=== PATIENT | female | born 1985 | race American Indian/Alaskan Native ===

== ENCOUNTER 2017-08-07 14:33 | Emergency (ER) | payer MEDICAID ==
[2017-08-07] MEDS ORDERED: Lactated Ringer's 1,000 ML IV ONE (15:50)
[2017-08-07 16:54] LABS: RBC URINE < 1 /hpf (0-3); URINE BILIRUBIN NEGATIVE (NEGATIVE); URINE BLOOD NEGATIVE (NEGATIVE); URINE COLOR Straw (YELLOW); URINE GLUCOSE (UA) NORMAL (Normal); URINE KETONE NEGATIVE (NEGATIVE); URINE LEUKOCYTE ESTERASE NEG Leu/uL (Negative); URINE PROTEIN NEGATIVE (NEGATIVE); URINE UROBILINOGEN NORMAL mg/dL (0.2-1.0); WBC URINE < 1 /hpf (0-5)
--- NOTE | 2017-08-08 09:41 | OBHP ---
Datetime: 08/07/2017 15:51 IP Chief Complaint Other: vaginal pressure IP Admit Plan: Discharge home Admit Comment, IP Provider: 32 yo at 34 weeks 6 days with a LMP of 12/06/2016 and an MOREAN of 1 per ultrasound. Patient presents with compliant of intermittent contraction and lower abdom inal pain that started on friday evening. Patient reports that her contractions have not been contino us. Patient denies LOF, VB, urinary symptoms and endorses movement issues: Denies OB Hx: G1: Female, 6lbs, full-term, , 04/09/2002 G2: Elective at 22 weeks by D_C- 2009 G3: Elective at 8 weeks by D_C-2011 G4: Elective by D_C-2015 G5: Current S[employer] Hx: Menarche: 10 [place]: 12/regular/ 4 days Denies hx of STDs Denies hx of fibroids and ovarian cysts Denies hx of abnormal pap smear PMHx: Denies PSHx: D _ C x3 FHx: Mother and Father: HTN Medications: PNV Allergies: NKDA Social Hx: Lives with her boyfriend, works as a customer service. Admits to former tobacco use (1P ack in 2 days), admits to 2-3 drinks per week ( pre-), and denies illicit drug use Vital signs: BP: 122/65, HR: 99, Temp: 97.6 P.E: See above A/P: 32 yo at 34 weeks 6 days with complaints of contractions 1. Stable, Afebrirle 2. Continiue EFM and TOCO 3. Hydrate with LR bolus 4. F/u UA 5. If continous contraction, pre-term precautions will be taken 6. Plan d/w with attending Mal Galvez DO, PGY-1 OB attending Patient examined.Agree with resident exam, assessment and plan Chief complaint-vaginal pressure Ptaient with c/o vaginal pressure.was checked in clinic and cervix was closed Patient given iv fluids.cervix re-examined .cervix closed UA neg for nitrites and le Plan-patient discharged home pelvic rest follow up in clinic in [address] wong Pelvic Type - PN: Adequate Extremities - PN: Normal Abdomen - PN: Normal Back - PN: Normal Lungs - PN: Normal Heart - PN: Normal Neurologic - PN: Normal General - PN: Normal Contraction Comments Provider: occ Comments, ACOG Physical Exam: Gen: NAD, AAOX3 Cardio: RRR, Normal S1, S2 Pulm: CTA bilaterally Abdomen: Soft, Gravid Ext: No edema, cyanosis and clubbing EFM: - FHR: 150 -[place]: irregular Gestation - Est Wks by US: 34 weeks and 6 days EGA AdmitDate IP: 34.6 Vital Signs Provider: Reviewed; Within Normal Limits IP Chief Complaint: Other FHR Category Provider Fetus A: Category I Dilatation, Provider: 0 Effacement, Provider: thick Station, Provider: high Genitourinary Exam: Normal DTRs - PN: Normal
[2017-08-08 13:39] VITALS: BP 122/65; PULSE 95; RESP 18; TEMP 97.6; O2SAT 99
== END 2017-08-07 17:20 | disposition home or self-care (01) ==
LOC: C.EROB 14:33
DX: O47.03 False labor before 37 completed weeks of gestation, third trimester (principal); Z3A.34 34 weeks gestation of pregnancy
CPT/HCPCS: 81001; 99283; J7120

== ENCOUNTER 2017-08-13 09:35 | Emergency (ER) | payer MEDICAID ==
[2017-08-13 09:54] VITALS: BMI 26.7
[2017-08-13] MEDS ORDERED: Lactated Ringer's 1,000 ML IV SCH (10:00)
--- NOTE | 2017-08-13 10:00 | OBHP ---
Datetime: 08/13/2017 09:56 IP Adm Impression: , intrauterine Admit Comment, IP Provider: at 35+weeks came with c/o lof started at 7.30 am, gush one time, c/ o ctxs irrg, no vb, +fm. no sex obhx 1 x , 1 x 22weeks loss, 3 x d _c pmh de med pnv all nkda psh d_c soch de ve closed ssse neg pooling, neg nitrazine a/p at 35+weeks ctxs r/o labor npo/ivf ua cont flaco and efm cont close observ Pelvic Type - PN: Adequate Extremities - PN: Normal Abdomen - PN: Normal Back - PN: Normal Breast - PN: Normal Lungs - PN: Normal Heart - PN: Normal Thyroid - PN: Normal Neurologic - PN: Normal HEENT - PN: Normal General - PN: Normal FHR - Baseline A Provider: 130 Contraction Comments Provider: q1-4 IP Hx Assessment: The History has been Reviewed and is Current EGA AdmitDate IP: 35.5 Vital Signs Provider: Reviewed; Within Normal Limits IP Chief Complaint: Uterine contractions NICHD Variability Prov Fetus A: Moderate 6-25bpm Dilatation, Provider: 0 Effacement, Provider: 0 Station, Provider: -3 Genitourinary Exam: Normal DTRs - PN: Normal
[2017-08-13 10:19] LABS: URINE BILIRUBIN NEGATIVE (NEGATIVE); URINE BLOOD NEGATIVE (NEGATIVE); URINE COLOR Colorless (YELLOW); URINE GLUCOSE (UA) NORMAL (Normal); URINE KETONE NEGATIVE (NEGATIVE); URINE LEUKOCYTE ESTERASE NEG Leu/uL (Negative); URINE PROTEIN NEGATIVE (NEGATIVE); URINE UROBILINOGEN NORMAL mg/dL (0.2-1.0); WBC URINE < 1 /hpf (0-5)
--- NOTE | 2017-08-13 13:45 | OBDCSUM ---
Datetime: 08/13/2017 13:44 Discharged to, Provider: Home Follow up at, Provider: 1day Follow up in weeks, Provider: dr awan Discharge Comment, Provider: dc home ptl given po hyration f/u Dr Awan in 1 day Discharge Diagnosis Prov Other: 35weeks nst ctxs
--- NOTE | 2017-08-13 13:46 | OBHP ---
Datetime: 08/13/2017 13:42 Admit Comment, IP Provider: pt was seen at bed side. pt feels better.no more ctxs, vb, lof, +fm ve closed x 2 ua neg s/p iv fluids and terb plan dc home ptl given po hyration f/u Dr Awan in 1 day FHR - Baseline A Provider: 140 Contraction Comments Provider: occ Vital Signs Provider: Reviewed; Within Normal Limits NICHD Variability Prov Fetus A: Moderate 6-25bpm NICHD Accel Fetus A IP Provider: [id number] FHR Category Provider Fetus A: Category I Dilatation, Provider: 0 Effacement, Provider: 0 Station, Provider: -3
[2017-08-14 12:35] VITALS: BP 116/61; PULSE 108
== END 2017-08-13 13:44 | disposition home or self-care (01) ==
LOC: C.EROB 09:35
DX: O47.03 False labor before 37 completed weeks of gestation, third trimester (principal); Z3A.35 35 weeks gestation of pregnancy
CPT/HCPCS: 81001; 99283; J3105; J7120

== ENCOUNTER 2017-09-09 12:45 | Inpatient (IN) | payer MEDICAID ==
[2017-09-09 19:44] VITALS: BMI 27.8
[2017-09-09] MEDS: Lactated Ringer's 1,000 ML IV SCH ×2 (19:45→22:00)
--- NOTE | 2017-09-09 21:11 | OBADHP ---
Datetime: 09/09/2017 20:51 Admit Comment, IP Provider: chief complaint-induction of labor, term HPI 32 y/o at 39.4 wga here for idnuction of labor course - care withgarth wong PMH denies PSH denies OBGYN HX ' TOPX3; NVDX1 Social hx denies tobacco,alcohol or illicit drug use Exam see exam section A/P 32 y/o at 39.4 wga here for induction of labor.gbs negative -admit -see order cervidil placed at 9.01 pm continue to monitor closely dr wong aware Pelvic Type - PN: Adequate Extremities - PN: Normal Abdomen - PN: Normal Back - PN: Normal Lungs - PN: Normal Heart - PN: Normal Neurologic - PN: Normal General - PN: Normal Weight - Estimated: 3200 Presentation-Admit: Vertex Contraction Comments Provider: occ Gestation - Est Wks by US: 39.4 IP Hx Assessment: The History has been Reviewed and is Current Vital Signs Provider: Reviewed; Within Normal Limits IP Chief Complaint: Scheduled induction of labor FHR Category Provider Fetus A: Category I Dilatation, Provider: 2 Effacement, Provider: 50 Station, Provider: -2 Genitourinary Exam: Normal DTRs - PN: Normal EGA AdmitDate IP: 39.4 IP Adm Impression: Term, intrauterine ; No Active Labor IP Admit Plan: Admit to unit; Initiate labor protocol Datetime: 08/13/2017 13:42 FHR - Baseline A Provider: 140 NICHD Variability Prov Fetus A: Moderate 6-25bpm NICHD Accel Fetus A IP Provider: [id number] Datetime: 08/13/2017 09:56 Breast - PN: Normal Thyroid - PN: Normal HEENT - PN: Normal Datetime: 08/07/2017 15:51 IP Chief Complaint Other: vaginal pressure Comments, ACOG Physical Exam: Gen: NAD, AAOX3 Cardio: RRR, Normal S1, S2 Pulm: CTA bilaterally Abdomen: Soft, Gravid Ext: No edema, cyanosis and clubbing EFM: - FHR: 150 -[place]: irregular
[2017-09-09 21:12] LABS: BASO % 0.2 % (0.0-2.0); EOS # 0.1 K/uL (0.0-0.7); EOS % 1.1 % (0.0-4.0); HEMATOCRIT 34.6 % (34.0-47.0); MEAN CELL VOLUME 88.2 fL (81.0-99.0); MEAN CORPUSCULAR HEMOGLOBIN 30.4 pg (27.0-31.0); MEAN CORPUSCULAR HGB CONC 34.5 g/dL (33.0-37.0); MEAN PLATELET VOLUME 9.8 fL (7.2-11.7); RED CELL DISTRIBUTION WIDTH 13.9 % (11.5-14.5); WHITE BLOOD COUNT 9.9 K/uL (4.8-10.8)
[2017-09-09 21:19] LABS: URINE BACTERIA RARE (<OCC); URINE BILIRUBIN NEGATIVE (NEGATIVE); URINE BLOOD NEGATIVE (NEGATIVE); URINE COLOR Straw (YELLOW); URINE GLUCOSE (UA) 1+ mg/dL (Normal); URINE KETONE NEGATIVE (NEGATIVE); URINE LEUKOCYTE ESTERASE NEG Leu/uL (Negative); URINE PROTEIN NEGATIVE (NEGATIVE); URINE UROBILINOGEN NORMAL mg/dL (0.2-1.0); WBC URINE 1 /hpf (0-5)
[2017-09-09 21:23] LABS: CHLORIDE 102 mmol/L (98-107); SODIUM 132 mmol/L (132-148)
[2017-09-09 21:24] LABS: POTASSIUM 3.5 mmol/L (3.6-5.2)
[2017-09-09 21:26] LABS: ALB/GLOB RATIO 1.2 (1.0-2.1); ALKALINE PHOSPHATASE 142 U/L (38-126); ALT/SGPT 19 U/L (9-52); AST/SGOT 17 U/L (14-36); BILIRUBIN,TOTAL 0.3 mg/dL (0.2-1.3); BLOOD UREA NITROGEN 9 mg/dL (7-17); CARBON DIOXIDE 19 mmol/L (22-30); GFR AFRICAN-AMERICAN > 60; GLUCOSE,RANDOM 152 mg/dL (65-105); TOTAL PROTEIN 5.9 g/dL (6.3-8.3)
[2017-09-09 21:27] LABS: CALCIUM 8.6 mg/dl (8.6-10.4)
[2017-09-10] MEDS ORDERED: Nalbuphine 20 mg/ml Inj (1 ml) IVP PRN (01:30)
[2017-09-10] MEDS ORDERED: Bupivacaine HCl 0.25% PF (10 ml) Inj ONE (08:56)
[2017-09-10] MEDS ORDERED: Bupivacaine 0.125%/FentaNYL 200 ML EPI ONE (08:56)
[2017-09-10] MEDS ORDERED: Oxytocin 30 UNIT 30 UNITS/500 ML BAG IV SCH (09:15)
--- NOTE | 2017-09-10 14:31 | OBDS ---
MATERNAL INFORMATION Delivery Anesthesia: Epidural Provider Comments: Uncomplicated spontaneous vaginal delivery of a viable female with BW of a nd scores of 9 and 9. EBL- 250mls LABOR SUMMARY EDC: 09/12/2017 00:00 No. Babies in Womb: 1 Attempted: No Labor Anesthesia: Epidural LABOR INFORMATION Cervical Ripening Agents: Cervidil Oxytocin: Augmentation Group B Beta Strep: Negative (Annotations: 08/14/2017) Antibiotics # of Doses: NA Antibiotics Time of Last Dose: NA Steroids Given: None Reason Steroids Not Administered: Not Applicable MEMBRANES Membranes Rupture Method: Artificial Rupture of Membranes: 09/10/2017 08:40 Length of Rupture (hrs): 5.67 Amniotic Fluid Color: Clear Amniotic Fluid Amount: Scant Amniotic Fluid Odor: Normal VAGINAL DELIVERY Initial Vag Sponge Count: 10 Initial Vag Sharps Count: 0 BABY A INFORMATION Delivery Date/Time: 09/10/2017 14:20 Method of Delivery: Vaginal Born in Route : No : N/A Forceps: N/A Vacuum Extraction: N/A Shoulder Dystocia : No SHOULDER DYSTOCIA BABY A Delivery Date/Time: 09/10/2017 14:20 PRESENTATION/POSITION BABY A Presentation: Cephalic Cephalic Presentation: Vertex Vertex Position: Left Occipital Anterior Breech Presentation: N/A INFORMATION BABY A Gestational Age at Delivery: 39.5 Gestational Status: Term Infant Outcome : Liveborn Condition : Stable Infant Sex: Female IDENTIFICATION/MEDS BABY A ID Band Number: [id number] ID Band Location: Left Leg; Left Arm Sensor Applied: Yes Sensor Number: [id number] Sensor Location : Cord Clamp Vitamin K Given : Not Given Erythromycin Given: Not Given WEIGHT/LENGTH BABY A Infant Birthweight (gms): 3150 Infant Weight (lb): 6 Weight (oz): 15 CORD INFORMATION BABY A No. Cord Vessels: 3 Nuchal Cord : N/A Cord Blood Taken: Yes
[2017-09-10] MEDS ORDERED: Benzocaine/Menthol 20%-0.5% Topical Spray (60 ml) TOP PRN (14:37)
[2017-09-10] MEDS ORDERED: Oxycodone/Acetaminophen 5/325 mg Tab PO PRN ×2 (14:37)
--- NOTE | 2017-09-10 14:37 | OBPN ---
Datetime: 09/10/2017 08:46 IP Progress Impression: Normal progression of labor IP Procedures: Artificial ROM IP Progress Plan: Continue present management; Augmentation Membranes, Provider: Ruptured Amniotic Fluid Color, Provider: Clear FHR - Baseline A Provider: 140 IP Progress Note Comment: Patient seen and examined at bedside. Patient is doing well, feeling contr actions. Cervidil removed. Patient was artificially ruptured, clear and scant at 8:40am. Will start p itocin at this time. Continue present management. Rosario Tucker DO PGY-1 Pt seen and examined with Resident and I agree with the above. Vital Signs Provider: Reviewed; Within Normal Limits NICHD Accel Fetus A IP Provider: [id number] FHR Category Provider Fetus A: Category I NICHD Variability Prov Fetus A: Moderate 6-25bpm Dilatation, Provider: 4 Effacement, Provider: 50 Station, Provider: -2 NICHD Decel Fetus A IP Provider: Variable Datetime: 09/09/2017 20:51 Contraction Comments Provider: occ Gestation - Est Wks by US: 39.4 Weight - Estimated: 3200 Presentation-Admit: Vertex
[2017-09-11 08:26] LABS: BASO % 0.3 % (0.0-2.0); EOS # 0.2 K/uL (0.0-0.7); EOS % 1.2 % (0.0-4.0); HEMATOCRIT 33.4 % (34.0-47.0); LYMPH # 2.3 K/uL (1.0-4.3); LYMPH % 16.1 % (20.0-40.0); MEAN CELL VOLUME 88.9 fL (81.0-99.0); MEAN CORPUSCULAR HEMOGLOBIN 30.7 pg (27.0-31.0); MEAN CORPUSCULAR HGB CONC 34.5 g/dL (33.0-37.0); MEAN PLATELET VOLUME 9.4 fL (7.2-11.7); MONO # 1.1 K/uL (0.0-0.8); MONO % 7.6 % (0.0-10.0); WHITE BLOOD COUNT 14.4 K/uL (4.8-10.8)
[2017-09-12 07:36] LABS: BASO % 0.3 % (0.0-2.0); EOS # 0.2 K/uL (0.0-0.7); EOS % 2.2 % (0.0-4.0); HEMATOCRIT 33.7 % (34.0-47.0); LYMPH % 29.5 % (20.0-40.0); MEAN CELL VOLUME 88.7 fL (81.0-99.0); MEAN CORPUSCULAR HEMOGLOBIN 30.4 pg (27.0-31.0); MEAN CORPUSCULAR HGB CONC 34.3 g/dL (33.0-37.0); MEAN PLATELET VOLUME 9.7 fL (7.2-11.7); MONO # 0.8 K/uL (0.0-0.8); MONO % 8.4 % (0.0-10.0); RED CELL DISTRIBUTION WIDTH 14.1 % (11.5-14.5)
[2017-09-12 08:46] VITALS: BP 125/81; PULSE 85; O2SAT 98
[2017-09-12] MEDS ORDERED: Influenza Vaccine 60 mcg/0.5 mL SYR (4YR UP) IM ONE (10:06)
[2017-09-12 23:29] VITALS: RESP 20; TEMP 99
--- NOTE | 2017-09-13 23:36 | OBPPN ---
Datetime: 09/12/2017 07:24 PP Pain Prov: Within normal limits PP Nausea Prov: Denies PP Flatus Prov: Yes PP BM Prov: Yes PP Heart Prov: Normal PP Lungs Prov: Normal PP Abdomen/Uterus Prov: Normal PP Lochia Prov: Normal PP Extremities Prov: Normal PP Comments Phys Exam Prov: Abdomen: Fundus is firm and below the umbilicus PP Impression Prov: Normal progression PP Plan Prov: Discharge Datetime: 09/11/2017 07:37 PP Progress Note Prov: Patient was seen and examined at bedside. Patient reports that she is doing w ell and her pain is well- controlled. Patient admits to moderate lochia, urinating without difficulty , ambulation, tolerating diet and breast feeding. Patient denies fever, chills, nausea, vomiting, saul st pain, SOB, palpitations, passing flatus, bowel movement, calf tenderness. Vital Signs: BP:119/74 HR: 93 Temp: 99.4, RR: 20 Sp02: 98% RA Physical Examination: Gen: NAD, AAOX3 Cardio: RRR, Normal S1, S2 Pulm: CTA bilaterally Abdomen: Soft, appropriately tender, fundus is firm and slightly below the umbilicus Ext: No edema, no cyanosis, no clubbing and no calf tenderness Labs: 9.9>11.9/34.6<202, F/U am CBC B+, Rubella immune A/P: 32 year old at 39 weeks and 5days s/p PPD #1 1. Stable, Afebrile 2. F/u am CBC 3. Pain control with percocet and motrin 4. Encourage ambulation and hydration 5. Encourage breast feeding 6. Monitor for bowel function 7. Continue routine post- care 8. Plans discussed with attending Mal Galvez DO, PGY-1 Pt d/w the resident aand I agree with the above Vital Signs Provider PP: Within Normal Limits
== END 2017-09-12 11:45 | disposition home or self-care (01) | DRG 373 ==
LOC: C.4D 19:36 → C.4M 09-10 16:26
PROVIDERS: ADMIT Obstetrics & Gynecology; ATTEND Obstetrics & Gynecology
PROC: 3E0P7VZ Introduction of Hormone into Female Reproductive, Via Natural or Artificial Opening (ICD-10-PCS; 2017-09-09)
PROC: 10E0XZZ Delivery of Products of Conception, External Approach (ICD-10-PCS; principal; 2017-09-10)
PROC: 10907ZC Drainage of Amniotic Fluid, Therapeutic from Products of Conception, Via Natural or Artificial Opening (ICD-10-PCS; 2017-09-10)
DX: O80 Encounter for full-term uncomplicated delivery (principal); Z37.0 Single live birth; Z3A.39 39 weeks gestation of pregnancy